=== PATIENT | female | born 1965 | race Caucasian/White ===

== ENCOUNTER 2019-01-08 20:38 | Emergency (ER) | payer OTHER ==
[~2019-01-08] VITALS: Ht 172.7 cm; Wt 83.9 kg
--- NOTE | 2019-01-08 21:00 | NUR ---
Note thomasone in EDM - 01/08/19 at 2127 by SADIA BIBRA FROM HOME. AAOX4. NAD, BREATHING EVEN AND UNLABORED. BROUGHT IN FOR RECTAL BLEEDING X 3 EPISODE WITH HEAVIEST BLEEDING STARTED @ 7PM. PT REPORTS BRIGHT RED AND DARK RED BLOOD W/ CLOTS. PT ALSO WAS REPORTED PASSING OUT AND ASSISTED TO THE FLOOR W/O ANY TRAUMA TO HEAD. DENIES PAIN. AFEBRILE. TO ER BED 11. AWAITING ORDERS
--- NOTE | 2019-01-08 21:00 | NUR ---
CEFERINO FROM HOME. AAOX4. NAD, BREATHING EVEN AND UNLABORED. BROUGHT IN FOR RECTAL BLEEDING X 3 EPISODE WITH HEAVIEST BLEEDING STARTED @ 7PM. PT REPORTS BRIGHT RED AND DARK RED BLOOD W/ CLOTS. PT ALSO WAS REPORTED PASSING OUT AND ASSISTED TO THE FLOOR W/O ANY TRAUMA TO HEAD. DENIES PAIN. AFEBRILE. PT CAME IN WITH IV ON R HAND 18G AND L AC 18G W/ 1L NS RUNNING, INFUSED ABOUT 400ML. TO ER BED 11. AWAITING ORDERS
--- NOTE | 2019-01-08 21:03 | NUR ---
EKG AT BEDSIDE
--- NOTE | 2019-01-08 21:06 | NUR ---
LAB AT BEDSIDE FOR DRAW
--- NOTE | 2019-01-08 21:17 | NUR ---
PT BEING WHEELED TO CT ON [facility]
[2019-01-08 21:18] LABS: BASOPHILS # (AUTO) 0.1 /CMM (0.0-0.2); BASOPHILS % (AUTO) 0.8 % (0.0-2.0); EOSINOPHILS % (AUTO) 0.9 % (0.0-6.0); HEMATOCRIT 35 % (33-45); HEMOGLOBIN 11.8 g/dL (11.5-14.8); LYMPHOCYTES # (AUTO) 1.9 /CMM (0.8-4.8); LYMPHOCYTES % (AUTO) 19.3 % (20.0-44.0); MEAN CORPUSCULAR HGB CONC 34 g/dl (31.0-36.0); MEAN CORPUSCULAR VOLUME 90 fL (82-100); MONOCYTES # (AUTO) 0.7 /CMM (0.1-1.30); MONOCYTES % (AUTO) 7.1 % (2.0-12.0); NEUTROPHILS % (AUTO) 71.9 % (43.0-81.0); PLATELET COUNT (AUTO) 235 /CMM (150-450); RED BLOOD CELL COUNT(AUTO) 3.93 MIL/uL (4.0-5.2); WHITE BLOOD COUNT (AUTO) 9.7 K/uL (4.3-11.0)
[2019-01-08 21:28] LABS: CALCIUM, SERUM 7.9 mg/dL (8.5-10.1); CREATININE 0.8 mg/dL (0.6-1.3); POTASSIUM 3.6 mmol/L (3.5-5.1)
[2019-01-08 21:32] LABS: BILIRUBIN,DIRECT 0.1 mg/dL (0.0-0.2); BILIRUBIN,TOTAL 0.4 mg/dL (0.2-1.0)
[2019-01-08 23:20] VITALS: BP 132/75
--- NOTE | 2019-01-08 23:28 | NUR ---
Patient discharged to home in stable condition. Written and verbal after care instructions given. Patient verbalizes understanding of instruction.IV removed. Catheter intact and site benign. Pressure and 4x4 applied to site. No bleeding noted. Pt ambulatory with a steady gait
== END 2019-01-08 23:58 | disposition home or self-care (01) ==
LOC: ER 20:38
DX: K64.4 Residual hemorrhoidal skin tags (principal); K92.2 Gastrointestinal hemorrhage, unspecified; Z60.2 Problems related to living alone; Z90.49 Acquired absence of other specified parts of digestive tract
CPT/HCPCS: 36415; 80048-TC; 80076-TC; 85025-TC; 85730-TC